=== PATIENT | male | born 1970 ===

== ENCOUNTER 2018-05-27 13:05 | Emergency (ER) | payer OTHER ==
--- NOTE | 2018-05-27 15:06 | ED PDOC ---
History of Present Illness History of Present Illness: 48 year old male with no significant medical history presents to the ED for evaluation of fever, body aches, sore throat, headache, bilateral ear pain and a dry cough since last night. He also reports a few episodes of diarrhea. Patient took Tylenol yesterday, but no medications today. He did not take temperature at home. Denies sick contacts, neck pain/stiffness, rash, chest pain, SOB, nausea, vomiting and abdominal pain. PMD: none provided HPI: Influenza Time Seen by Provider: 05/27/18 14:45 Chief Complaint: Flu-like Symptoms Chief Complaint (Provider): Flu-like Symptoms History Per: Patient Exam Limitations: no limitations Have you had recent travel within the past 21 days to any of: No Onset/Duration Of Symptoms: Days (x 1) Symptoms include: fever, headache, bodyaches, sore throat, cough (dry) Sick Contacts (Context): None Past Medical History Reviewed: Historical Data, Nursing Documentation, Vital Signs Vital Signs: Last Vital Signs Temp 101.8 F H 05/27/18 14:13 Pulse 90 05/27/18 14:13 Resp 16 05/27/18 14:13 BP 126/77 05/27/18 14:13 Pulse Ox 96 05/27/18 14:13 - Medical History PMH: No Chronic Diseases - Surgical History Surgical History: No Surg Hx - Family History Family History: States: Unknown Family Hx - Social History Current smoker - smoking cessation education provided: No Alcohol: None Drugs: Denies - Home Medications Home Medications: Ambulatory Orders Medication Instructions Recorded Acetaminophen [Acetaminophen 8 650 mg PO Q8 PRN #21 tablet.er 05/27/18 Hour] Oseltamivir Phosphate [Tamiflu] 75 mg PO BID #10 capsule 05/27/18 RX: Ibuprofen [Motrin Tab] 600 mg PO Q6 PRN #20 tab 05/27/18 - Allergies Allergies/Adverse Reactions: Allergies Allergy/AdvReac Type Severity Reaction Status Date / Time No Known Allergies Allergy Verified 05/27/18 14:13 Review of Systems ROS Statement: Except As Marked, All Systems Reviewed And Found Negative Constitutional: Positive for: Fever, Other (body aches). Negative for: Chills ENT: Positive for: Ear Pain (bilateral), Throat Pain. Negative for: Ear Discharge Respiratory: Positive for: Cough (dry) Neurological: Positive for: Headache Physical Exam - Reviewed Nursing Documentation Reviewed: Yes Vital Signs Reviewed: Yes - Physical Exam Comments: GENERAL APPEARANCE: Patient is awake, alert, oriented x 3, in no acute distress. SKIN: Warm, dry; (-) cyanosis, (-) rash ENMT: Mucous membranes moist. (-) sinus tenderness. TMs: (-) bulging, (-) erythema. Airway patent: (-) stridor. Pharynx: clear, uvula midline (+) erythema, (-) exudate. NECK: Supple, FROM (-) tenderness, (-) stiffness, (-) meningismus, (-) lymphadenopathy. ABDOMEN AND GI: Soft; (-) tenderness, (-) guarding CARDIAC: (-) irregularity RESPIRATORY: lungs clear to auscultation bilaterally (-) rales (-) rhonchi (-) wheezing. Respirations nonlabored. EXTREMITIES: (-) deformity NEURO AND PSYCH: Mental status as above; (-) focal findings. Gait: steady. Speech: clear. (-) facial asymmetry. EOMI and painless. Pupils equal and reactive. Cerebellar tests intact. Medical Decision Making Medical Decision Makin:57 Clinical Impression: fever, throat pain, body aches, cough; to consider influenza vs pharyngitis Initial Plan: --Tylenol 975 mg PO --Motrin 600 mg PO --Throat cx --CXR --Influenza AB --Rapid Strep 1610 Rapid strep: negative Influenza: negative CXR reviewed, radiology report follows Date of service: 05/27/2018 HISTORY: fever, cough COMPARISON: 11/16/2017 TECHNIQUE: Chest PA and lateral FINDINGS: LUNGS: No interval consolidation noted. The oval 2.9 x 2.3 cm opacity projecting over the right lower lung zone as well as over right anterior 6th rib and posterior right 9th rib is similar in appearance per frontal views. Localization on the lateral is less clearly appreciated. Its similarity since 2012 is most consistent with benign etiology. Calcified pleural plaque seen on end is 1 con sideration. Calcification relating to the right ribs is another. PLEURA: No significant pleural effusion identified. No pneumothorax apparent. CARDIOVASCULAR: No aortic atherosclerotic calcification present. Normal cardiac size. No pulmonary vascular congestion. OSSEOUS STRUCTURES: No fracture seen. Please note the above differential considerations noted in the lung section VISUALIZED UPPER ABDOMEN: Normal. OTHER FINDINGS: None. IMPRESSION: No interval acute cardiopulmonary pathology noted. The 2.9 x 2.3 cm oval hyperdensity projecting over the right lower lung zone and right ribs is stable in appearance compared to the 2013 study supporting a likely benign etiology. Stable benign right rib pathology and/or calcified right-sided pleural plaque seen on end are some considerations. Tamiflu 75mg PO ordered for clinical influenza. Pending repeat vitals. 1655 Repeat temp: 99.0 oral On re-evaluation, patient reports improvement of symptoms. On exam, patient remains AAOx3, in no acute distress. Vitals stable. Lab/Diagnostic results d/w the patient in great detail. Diagnosis of fever, cough, sore throat, influenza d/w the patient. Based on history, exam and diagnostic results, plan will be for outpatient follow up with PMD/clinic. Patient instructed to follow-up with pmd / referral provided / the clinic in 1- 2 days without fail. Advised to take medication as prescribed. Return to the emergency room at any time for any new or worsening symptoms. Patient states he fully agrees with and understands discharge instructions. States that he agrees with the plan and disposition. Verbalized and repeated discharge instructions and plan. I have given the patient opportunity to ask any additional questions. Scribe Attestation: Documented by Kayla Machado, acting as a scribe for Rhoda Malik PA-C Provider Scribe Attestation: All medical record entries made by the Scribe were at my direction and personally dictated by me. I have reviewed the chart and agree that the record accurately reflects my personal performance of the history, physical exam, medical decision making, and the department course for this patient. I have also personally directed, reviewed, and agree with the discharge instructions and disposition. - ECG O2 Sat by Pulse Oximetry: 96 (RA) Pulse Ox Interpretation: Normal Disposition - Clinical Impression Clinical Impression: Influenza, Fever in adult, Cough, Sore throat - Patient ED Disposition Is Patient to be Admitted: No Counseled Patient/Family Regarding: Studies Performed, Diagnosis, Need For Followup, Rx Given - Disposition Referrals: [facility] [Outside] Disposition: Routine/Home Disposition Time: 16:55 Condition: STABLE Additional Instructions: La atencin mdica de emergencia que recibi hoy se dirigi a vickie sntomas agudos. Si le recetaron algn medicamento, llnelo y tmelo segn las indicaciones. Los sntomas pueden tardar varios waters en resolverse. Regrese al Departamento de Emergencias si vickie sntomas empeoran, no mejoran o si tiene otros problemas. Comunquese con rocha mdico dentro de 2 waters para brynn nueva evaluacin y shital un seguimiento o llame a omega de los mdicos / clnicas a los que salguero sido referido y que figuran en el formulario de Informacin de visita al paciente que se incluye en rocha paquete de marino. Lleve todos los documentos que le entregaron al momento del marino junto con todos los medicamentos que est tomando para rocha visita de seguimiento. Nuestro tratamiento no puede reemplazar la atencin mdica continua por parte de un proveedor de atencin primaria (PCP) fuera del departamento de emergencias. Prescriptions: Acetaminophen [Acetaminophen 8 Hour] 650 mg PO Q8 PRN #21 tablet.er PRN Reason: pain/fever RX: Ibuprofen [Motrin Tab] 600 mg PO Q6 PRN #20 tab PRN Reason: pain/fever Oseltamivir Phosphate [Tamiflu] 75 mg PO BID #10 capsule Instructions: Flu, Cough in Adults, Fever, Adult (DC), When to Worry About a Fever Forms: [employer] (Luxembourgish) Print Language: GUAMANIAN - POA Present On Arrival: None Results - Diagnostic Imaging Results Radiology Results Chest X-Ray 05/27/18 15:03 IMPRESSION: No interval acute cardiopulmonary pathology noted. The 2.9 x 2.3 cm oval hyperdensity projecting over the right lower lung zone and right ribs is stable in appearance compared to the 2013 study supporting a likely benign etiology. Stable benign right rib pathology and/or calcified right-sided pleural plaque seen on end are some considerations. - Lab Results Lab Results: 05/27/18 05/27/18 15:37 15:37 Influenza Typ A,B (EIA) Negative for flu a/b Grp A Beta Strep Ag Negative
--- NOTE | 2018-05-27 15:22 | RAD ---
Date of service: 05/27/2018 HISTORY: fever, cough COMPARISON: 11/16/2017 TECHNIQUE: Chest PA and lateral FINDINGS: LUNGS: No interval consolidation noted. The oval 2.9 x 2.3 cm opacity projecting over the right lower lung zone as well as over right anterior 6th rib and posterior right 9th rib is similar in appearance per frontal views. Localization on the lateral is less clearly appreciated. Its similarity since 2013 is most consistent with benign etiology. Calcified pleural plaque seen on end is 1 consideration. Calcification relating to the right ribs is another. PLEURA: No significant pleural effusion identified. No pneumothorax apparent. CARDIOVASCULAR: No aortic atherosclerotic calcification present. Normal cardiac size. No pulmonary vascular congestion. OSSEOUS STRUCTURES: No fracture seen. Please note the above differential considerations noted in the lung section VISUALIZED UPPER ABDOMEN: Normal. OTHER FINDINGS: None. IMPRESSION: No interval acute cardiopulmonary pathology noted. The 2.9 x 2.3 cm oval hyperdensity projecting over the right lower lung zone and right ribs is stable in appearance compared to the 2013 study supporting a likely benign etiology. Stable benign right rib pathology and/or calcified right-sided pleural plaque seen on end are some considerations.
[2018-05-27 16:54] VITALS: BP 116/76; PULSE 78; RESP 18; TEMP 99
[2018-05-27 17:18] VITALS: O2SAT 96
== END 2018-05-27 17:43 | disposition home or self-care (01) ==
LOC: H.ER 13:05
DX: J11.1 Influenza due to unidentified influenza virus with other respiratory manifestations (principal); R50.9 Fever, unspecified